=== PATIENT | female | born 1990 | race Caucasian/White ===

== ENCOUNTER 2016-09-02 12:41 | Emergency (ER) | payer SELFPAY ==
[~2016-09-02] VITALS: Ht 162.6 cm; Wt 65.8 kg
[2016-09-02 12:49] VITALS: BP 125/87; PULSE 85; RESP 14; TEMP 97.5; O2SAT 100
--- NOTE | 2016-09-02 12:49 | NUR ---
Patient to ER bed 08 to gown for evaluation. Side rails up. Report given to Pablo.
--- NOTE | 2016-09-02 12:51 | NUR ---
ER at bedside examining patient.
--- NOTE | 2016-09-02 12:55 | NUR ---
Pt c/o left upper tooth pain after "it cracked" 3 days ago. Has an appointment with dentist next tuesday. No swelling noted. Pt states no bleeding or oozing.
[2016-09-02 13:00] VITALS: BP 125/87; PULSE 85; RESP 14; TEMP 97.5; O2SAT 100
--- NOTE | 2016-09-02 13:00 | NUR ---
Patient given written and verbal discharge instructions and verbalizes understanding. ER MD discussed with patient the results and treatment provided. Patient in stable condition. ID arm band removed. Rx of tramadol, augmentin given. Patient educated on pain management and to follow up with PMD. Pain Scale 2/10. Opportunity for questions provided and answered.
== END 2016-09-02 13:00 | disposition home or self-care (01) ==
LOC: SED 12:41
DX: K03.81 Cracked tooth (principal); K08.89 Other specified disorders of teeth and supporting structures; Z88.8 Allergy status to other drugs, medicaments and biological substances
CPT/HCPCS: 99283